=== PATIENT | female | born 1955 | race Caucasian/White ===

== ENCOUNTER 2017-09-15 13:11 | Emergency (ER) | payer OTHER ==
[~2017-09-15] VITALS: Ht 154.9 cm; Wt 111.8 kg
[~2017-09-15 13:11] MED LIST: BEN50 PO; PANT40EC PO
[2017-09-15 13:18] VITALS: BP 130/78
--- NOTE | 2017-09-15 13:29 | NUR ---
PATIENT PRESENTS TO ED WITH LT FLANK PAIN RADIATING TO LOWER ABD .DENIES N/V/D; SKIN IS PINK/WARM/DRY; AAOX4 WITH EVEN AND STEADY GAIT; LUNGS CLEAR BL; HR EVEN AND REGULAR; PT DENIES ANY FEVER, CP, SOB, OR COUGH AT THIS TIME; PATIENT STATES PAIN OF 2/10 AT THIS TIME; VSS; PATIENT POSITIONED FOR COMFORT; HOB ELEVATED; BEDRAILS UP X2; BED DOWN. ER MD MADE AWARE OF PT STATUS.
[2017-09-15] MEDS ORDERED: KETOROLAC 60 MG/2 ML VIAL IM ONE (13:45)
[2017-09-15 14:04] VITALS: BP 125/72
--- NOTE | 2017-09-15 14:04 | NUR ---
Patient discharged with v/s stable. Written and verbal after care instructions given and explained. Patient alert, oriented and verbalized understanding of instructions. Ambulatory with steady gait. All questions addressed prior to discharge. ID band removed. Patient advised to follow up with PMD. Rx of MOTRIN AND ZOFRAN given. Patient educated on indication of medication including possible reaction and side effects. Opportunity to ask questions provided and answered.
== END 2017-09-15 14:04 | disposition home or self-care (01) ==
LOC: MED 13:11
DX: R10.13 Epigastric pain (principal); K21.9 Gastro-esophageal reflux disease without esophagitis; F17.200 Nicotine dependence, unspecified, uncomplicated; Z88.5 Allergy status to narcotic agent
CPT/HCPCS: 81002; 96372; 99283; J1885

== ENCOUNTER 2018-04-14 14:15 | Emergency (ER) | payer OTHER ==
[~2018-04-14] VITALS: Ht 157.5 cm; Wt 127.0 kg
[2018-04-14 14:19] VITALS: BP 111/71
--- NOTE | 2018-04-14 14:20 | NUR ---
63y/f bib self c/o spider bite to left arm, tha lower extremities x 3 days. +pruritis, Denies fevers/vomitting; bed down; bedrail up x 1; er md aware and notified of pt status. med hx: none rx: pantrapozole
--- NOTE | 2018-04-14 14:40 | NUR ---
Patient being evaluated by physician at bedside.
[2018-04-14 15:21] VITALS: BP 110/70
--- NOTE | 2018-04-14 15:21 | NUR ---
Patient discharged with v/s stable. Written and verbal after care instructions given and explained. Patient alert, oriented and verbalized understanding of instructions. Ambulatory with steady gait. All questions addressed prior to discharge. ID band removed. Patient advised to follow up with PMD. Rx of hydrocortisone, bactrium, benadryl given. Patient educated on indication of medication including possible reaction and side effects. Opportunity to ask questions provided and answered.
== END 2018-04-14 15:21 | disposition home or self-care (01) ==
LOC: MED 14:15
DX: S50.362A Insect bite (nonvenomous) of left elbow, initial encounter (principal); S90.562A Insect bite (nonvenomous), left ankle, initial encounter; S90.561A Insect bite (nonvenomous), right ankle, initial encounter; L73.9 Follicular disorder, unspecified; K21.9 Gastro-esophageal reflux disease without esophagitis; Z88.5 Allergy status to narcotic agent; Z79.899 Other long term (current) drug therapy; W57.XXXA Bitten or stung by nonvenomous insect and other nonvenomous arthropods, initial encounter; Y93.89 Activity, other specified; Y92.89 Other specified places as the place of occurrence of the external cause; Y99.8 Other external cause status
CPT/HCPCS: 99283

== ENCOUNTER 2018-04-15 13:03 | Emergency (ER) | payer OTHER ==
[~2018-04-15] VITALS: Ht 157.5 cm; Wt 112.5 kg
[2018-04-15 13:12] VITALS: BP 118/66
--- NOTE | 2018-04-15 13:17 | NUR ---
Patient ambulated to bed 5. RN evaluating patient at bedside.
--- NOTE | 2018-04-15 13:18 | NUR ---
63/F BIB SON FOR RECHECK FROM INSECT BITE ON LT UPPER ARM WITH C/O FEELING HOT AND "LITTLE BIT OF PAIN" 3/10 WITH ITCHINESS; SEEN HERE YESTERDAY AND PRESCRIBE WITH HYDROCORTISONE. HX; GERD. RX; PANTOPRAZOLE.AAOX4 WITH EVEN AND STEADY GAIT; LUNGS CLEAR BL; HR EVEN AND REGULAR; PAIN 3/10 AT THIS TIME; PATIENT POSITIONED FOR COMFORT; HOB ELEVATED; BEDRAILS UP X2; BED DOWN. ER MD MADE AWARE OF PT STATUS.
--- NOTE | 2018-04-15 13:22 | NUR ---
Dr. Mireles evaluating patient at bedside.
[2018-04-15] MEDS ORDERED: diphenhydrAMINE 50 MG/ML VIAL IM ONE (13:25)
[2018-04-15] MEDS ORDERED: DEXAMETHASONE 10 MG/ML VIAL IM ONE (13:25)
--- NOTE | 2018-04-15 13:40 | NUR ---
Dr. Mireles re-evaluating patient at bedside.
[2018-04-15 14:40] VITALS: BP 119/71
--- NOTE | 2018-04-15 14:40 | NUR ---
Patient discharged with v/s stable. Written and verbal after care instructions given and explained. Patient alert, oriented and verbalized understanding of instructions. Ambulatory with steady gait. All questions addressed prior to discharge. ID band removed. Patient advised to follow up with PMD. Rx of PREDNISONE & ATARAX given. Patient educated on indication of medication including possible reaction and side effects. Opportunity to ask questions provided and answered.
== END 2018-04-15 14:40 | disposition home or self-care (01) ==
LOC: MED 13:03
DX: T63.441A Toxic effect of venom of bees, accidental (unintentional), initial encounter (principal); K21.9 Gastro-esophageal reflux disease without esophagitis; L08.9 Local infection of the skin and subcutaneous tissue, unspecified; Z88.6 Allergy status to analgesic agent; Z88.8 Allergy status to other drugs, medicaments and biological substances; Z79.899 Other long term (current) drug therapy
CPT/HCPCS: 96372; 99284; J1100; J1200

== ENCOUNTER 2018-10-07 15:29 | Emergency (ER) | payer OTHER ==
[~2018-10-07] VITALS: Ht 157.5 cm; Wt 114.4 kg
[2018-10-07 16:51] VITALS: BP 150/91
--- NOTE | 2018-10-07 18:21 | NUR ---
63 YO F WITH C/O R BREAST PAIN SINCE SUNDAY. 01/20 PAIN. NO DISCHRAGE OR INJURY. RADIATING TO R ARM. MAMMOGRAM DONE AUG 2018, DENSITY FOUND ON L BREAST PER PT. VSS; PATIENT POSITIONED FOR COMFORT; HOB ELEVATED; BEDRAILS UP X1; BED DOWN. ER MD MADE AWARE OF PT STATUS.
[2018-10-07 18:22] VITALS: BP 150/91
--- NOTE | 2018-10-07 19:10 | NUR ---
ASSUMED CARE OF PT FROM [facility]I OSMAN
--- NOTE | 2018-10-07 21:07 | NUR ---
PATIENT LEFT WITHOUT BEING SEEN BY ER PROVIDER. NO FURTHER CARE PROVIDED FOR PATIENT.
== END 2018-10-07 21:07 | disposition left against medical advice (07) ==
LOC: MED 15:29
DX: N64.4 Mastodynia (principal); K21.9 Gastro-esophageal reflux disease without esophagitis; Z53.21 Procedure and treatment not carried out due to patient leaving prior to being seen by health care provider
CPT/HCPCS: 96372; 99283

== ENCOUNTER 2018-12-23 14:17 | Emergency (ER) | payer OTHER ==
[~2018-12-23] VITALS: Ht 154.9 cm; Wt 115.7 kg
[2018-12-23 14:30] VITALS: BP 133/74
--- NOTE | 2018-12-23 14:38 | NUR ---
PT AMBULATED TO BED 10.
--- NOTE | 2018-12-23 14:51 | NUR ---
C/O RIGHT FLANK PAIN RADIATING RIGHT GROIN AREA X 3 DAYS-- ADDS TODAY FELT PAIN ON BILATERAL FLANK AREAS---DENIES DYSURIA ADMITS HAS BEEN DRINKING SODA
--- NOTE | 2018-12-23 15:15 | NUR ---
Patient taken to CT scan via gurney by [facility].
--- NOTE | 2018-12-23 15:18 | NUR ---
pt to ct via [facility]
--- NOTE | 2018-12-23 15:24 | NUR ---
Patient returned from CT scan. RN re-evaluating patient at bedside.
[2018-12-23 15:54] LABS: BASOPHILS # (AUTO) 0.1 K/uL (0.00-0.22); BASOPHILS % (AUTO) 1.1 % (0.0-2.0); EOSINOPHILS # (AUTO) 0.3 K/uL (0-0.4); EOSINOPHILS % (AUTO) 2.7 % (0.0-4.0); HEMATOCRIT 40.7 % (36-48); HEMOGLOBIN 13.4 g/dL (12.0-16.0); LYMPHOCYTES # (AUTO) 2.9 K/uL (2.5-16.5); LYMPHOCYTES % (AUTO) 29.7 % (20.5-51.1); MEAN CORPUSCULAR HEMOGLOBIN 29 pg (27-31); MEAN CORPUSCULAR HGB CONC 33 g/dL (33-37); MEAN CORPUSCULAR VOLUME 88.5 fL (80-94); MONOCYTES # (AUTO) 0.9 K/uL (0.8-1.0); MONOCYTES % (AUTO) 9.4 % (1.7-9.3); NEUTROPHILS # (AUTO) 5.6 K/uL (1.8-7.7); NEUTROPHILS % (AUTO) 57.1 % (42.2-75.2); PLATELET COUNT (AUTO) 266 K/uL (140-450); RED CELL DISTRIBUTION WIDTH 14.5 % (11.6-13.7); WHITE BLOOD COUNT (AUTO) 9.7 K/uL (4.8-10.8)
[2018-12-23 15:54] LABS: APPEARANCE,URINE HAZY (CLEAR); BILIRUBIN,URINE NEGATIVE (NEGATIVE); BLOOD, URINE TRACE-L (NEGATIVE); COLOR,URINE YELLOW (YELLOW); LEUKOCYTE ESTERASE ,URINE TRACE (NEGATIVE); NITRITE, URINE NEGATIVE (NEGATIVE); PH,URINE 6.5 (5.0-9.0); UGLUCOSE NEGATIVE (NEGATIVE)
[2018-12-23 16:06] LABS: RBC,URINE 0-5 /HPF (0-5); WBC,URINE 0-5 /HPF (0-5)
[2018-12-23 16:14] LABS: ALBUMIN 3.3 g/dL (3.4-5.0); ANION GAP 11.2 (8-16); CARBON DIOXIDE 26.6 mmol/L (21-32); POTASSIUM 3.8 mmol/L (3.5-5.1); TOTAL BILIRUBIN 0.3 mg/dL (0.0-1.0)
[2018-12-23] MEDS ORDERED: KETOROLAC 60 MG/2 ML VIAL IM ONE (16:35)
[2018-12-23 16:52] VITALS: BP 137/88
--- NOTE | 2018-12-23 16:53 | NUR ---
Patient discharged with v/s stable. Written and verbal after care instructions given and explained. Patient alert, oriented and verbalized understanding of instructions. Ambulatory with steady gait. All questions addressed prior to discharge. ID band removed. Patient advised to follow up with PMD. Rx of NAPROSYN given. Patient educated on indication of medication including possible reaction and side effects. Opportunity to ask questions provided and answered. RADIOLOGY READ HANDED TO PT ALONG WITH LAB RESULTS TO F/U WITH PMD
== END 2018-12-23 16:50 | disposition home or self-care (01) ==
LOC: MED 14:17
DX: K57.90 Diverticulosis of intestine, part unspecified, without perforation or abscess without bleeding (principal); M47.896 Other spondylosis, lumbar region; K21.9 Gastro-esophageal reflux disease without esophagitis; Z88.5 Allergy status to narcotic agent; Z79.899 Other long term (current) drug therapy
CPT/HCPCS: 36415; 74176; 80053; 81001; 81025; 83690; 85025; 87086; 96372; 99284; J1885

== ENCOUNTER 2019-08-12 23:44 | Emergency (ER) | payer OTHER ==
[~2019-08-12] VITALS: Ht 157.5 cm; Wt 117.0 kg
[2019-08-12 23:50] VITALS: BP 147/87
--- NOTE | 2019-08-12 23:50 | NUR ---
TO BED # 09 AMBULATORY
--- NOTE | 2019-08-13 00:16 | NUR ---
BIB SELF C/O DIFFICULTY SWALLOWING/BREATHING X 2 DAYS S/P TAKING PREDNISONE + MONTELUKAST THAT WAS PRESCRIBED FOR SINUSITIS VIA PCP. PT REPORTS DIFFICULTY BREATHING WHEN LAYING FLAT. NO CHEST PAIN REPORTED. BILATERAL LUNG SOUNDS CLEAR. PERIODIC ACCESSORY MUSCLE USE. PMH: SEASONAL ALLERGIES, GERD ALLERGIES: CODEINE, MORPHINE
--- NOTE | 2019-08-13 00:21 | NUR ---
PATIENT TRANSFERRED TO XRAY VIA WHEEL CHAIR
--- NOTE | 2019-08-13 00:55 | NUR ---
PT RESTING ON CHAIR. REPORTS IMPROVEMENT OF DIFFICULTY SWALLING/BREATHING.
[2019-08-13] MEDS ORDERED: FUROSEMIDE 20 MG TAB PO ONE (01:10)
[2019-08-13 01:15] VITALS: BP 138/79
--- NOTE | 2019-08-13 01:15 | NUR ---
Patient discharged with v/s stable. No c/o of sob/dyspena. She states relief. Written and verbal after care instructions given and explained. Patient alert, oriented and verbalized understanding of instructions. Ambulatory with steady gait. All questions addressed prior to discharge. ID band removed. Patient advised to follow up with PMD and when to return to ER. Rx of Lasix and Benadryl given. Patient educated on indication of medication including possible reaction and side effects. Opportunity to ask questions provided and answered.
== END 2019-08-13 01:15 | disposition home or self-care (01) ==
LOC: MED 23:44
DX: T78.40XA Allergy, unspecified, initial encounter (principal); K21.9 Gastro-esophageal reflux disease without esophagitis; Z88.5 Allergy status to narcotic agent; Z98.41 Cataract extraction status, right eye; X58.XXXA Exposure to other specified factors, initial encounter; Y93.89 Activity, other specified; Y92.89 Other specified places as the place of occurrence of the external cause; Y99.8 Other external cause status
CPT/HCPCS: 71046; 99283; Q0163

== ENCOUNTER 2020-10-24 15:07 | Emergency (ER) | payer OTHER ==
[~2020-10-24] VITALS: Ht 170.2 cm; Wt 104.3 kg
[2020-10-24 15:10] VITALS: BP 138/78
--- NOTE | 2020-10-24 15:16 | NUR ---
65 YO F BIB SELF FOR C/O NON RAD CHEST PRESSURE SINCE LAST NIGHT AFTER TAKING GABAPENTIN FOR THE FIRST TIME, PT STATES SHE FEELS LIKE SHE HAD AN ANXIETY ATTACK LAST NIGHT, BUT CHEST PRESSURE IS STILL PRESENT. PT REPORTS NAUSEA NO VOMITING. S1S2 HEARD, LUNG SOUNDS CLEAR THROUGHOUT. CAP REFILL <3, PULSES EQUAL AND REGULAR. PT DID NOT TAKE ANY OTC MEDS FOR PAIN. PT PLACED ON POLICE CADET/PULSE OX. BED LOCKED AND IN LOWEST POSITION. SIDE RAILS X1. NO PMH ALLERGIES: CODEINE, MORPHINE
--- NOTE | 2020-10-24 15:54 | NUR ---
RAD AT BEDSIDE
--- NOTE | 2020-10-24 15:58 | NUR ---
EKG ORDER AT 1536 PER DOCTOR REQUESTED TO POSTPONE FOR 1 HOUR.
--- NOTE | 2020-10-24 15:59 | NUR ---
LAB AT BEDSIDE
[2020-10-24 16:09] LABS: BASOPHILS # (AUTO) 0.1 K/uL (0.00-0.22); BASOPHILS % (AUTO) 0.9 % (0.0-2.0); EOSINOPHILS # (AUTO) 0.4 K/uL (0-0.4); EOSINOPHILS % (AUTO) 4.4 % (0.0-4.0); HEMATOCRIT 41.5 % (36-48); LYMPHOCYTES # (AUTO) 3.1 K/uL (2.5-16.5); LYMPHOCYTES % (AUTO) 30.8 % (20.5-51.1); MEAN CORPUSCULAR HEMOGLOBIN 30 pg (27-31); MEAN CORPUSCULAR HGB CONC 34 g/dL (33-37); MONOCYTES # (AUTO) 0.9 K/uL (0.8-1.0); MONOCYTES % (AUTO) 8.6 % (1.7-9.3); NEUTROPHILS # (AUTO) 5.6 K/uL (1.8-7.7); NEUTROPHILS % (AUTO) 55.3 % (42.2-75.2); PLATELET COUNT (AUTO) 281 K/uL (140-450); RED BLOOD CELL COUNT(AUTO) 4.66 MIL/uL (4.20-5.40); RED CELL DISTRIBUTION WIDTH 15.1 % (11.6-13.7); WHITE BLOOD COUNT (AUTO) 10.1 K/uL (4.8-10.8)
[2020-10-24 16:27] LABS: ALBUMIN 3.6 g/dL (3.4-5.0); ANION GAP 12.7 (8-16); CARBON DIOXIDE 27.9 mmol/L (21-32); POTASSIUM 4.6 mmol/L (3.5-5.1); TOTAL BILIRUBIN 0.5 mg/dL (0.0-1.0)
--- NOTE | 2020-10-24 17:41 | NUR ---
LAB AT BEDSIDE FOR REPEAT TROPONIN
[2020-10-24 18:54] VITALS: BP 105/44
--- NOTE | 2020-10-24 18:54 | NUR ---
Patient discharged with v/s stable. Written and verbal after care instructions given and explained. Patient verbalized understanding. Ambulatory with steady gait. All questions addressed prior to discharge. Advised to follow up with PMD.
== END 2020-10-24 18:54 | disposition home or self-care (01) ==
LOC: MED 15:07
DX: R07.9 Chest pain, unspecified (principal); M54.5 Low back pain; K21.9 Gastro-esophageal reflux disease without esophagitis; Z88.5 Allergy status to narcotic agent
CPT/HCPCS: 36415; 71045; 80053; 83880; 84484; 85025; 93005; 99285

== ENCOUNTER 2021-11-04 09:31 | Emergency (ER) | payer OTHER ==
[~2021-11-04] VITALS: Ht 157.5 cm; Wt 115.2 kg
--- NOTE | 2021-11-04 09:51 | NUR ---
PT AMBULATED TO ER BED 2 WITH A STEADY GAIT FOR BEDSIDE TRIAGE.
[2021-11-04 09:53] VITALS: BP 138/105
--- NOTE | 2021-11-04 09:57 | NUR ---
DR. YANG AT PT BEDSIDE FOR FURTHER EVALUATION.
[2021-11-04] MEDS ORDERED: KETOROLAC 30 MG/ML VIAL IM ONE (10:10)
--- NOTE | 2021-11-04 10:11 | NUR ---
66 Y/O FEMALE C/O LEFT WRIST PAIN 05/22 X1DAY S/P "TURNING THE SHOWER KNOB" AT HOME. TODAY STATES SHE WOKE UP WITH SWELLING, EDEMA +2 NON-PITTING. DENIES FEVER/CHILLS. DENIES N/V. DENIES PMH ALLERGIES: CODEINE, MORPHINE, VICODIN
[2021-11-04] MEDS ORDERED: NAPR-54 PO (11:00)
--- NOTE | 2021-11-04 11:04 | NUR ---
PT'S LEFT WRIST SPLINTED WITH FABRICATED SPLINT. NOTIFED AND APPROVED.
[2021-11-04 11:21] VITALS: BP 138/105
--- NOTE | 2021-11-04 11:21 | NUR ---
Patient discharged with v/s stable. Written and verbal after care instructions given FOR TENDINITIS AND WRIST SPRAIN and explained. Patient alert, oriented and verbalized understanding of instructions. Ambulatory with steady gait. All questions addressed prior to discharge. ID band removed. Patient advised to follow up with PMD. Rx of NAPROXEN given. Patient educated on indication of medication including possible reaction and side effects. Opportunity to ask questions provided and answered.
== END 2021-11-04 11:21 | disposition home or self-care (01) ==
LOC: MED 09:31
DX: S63.502A Unspecified sprain of left wrist, initial encounter (principal); K21.9 Gastro-esophageal reflux disease without esophagitis; Z88.5 Allergy status to narcotic agent; Z79.899 Other long term (current) drug therapy; Z98.890 Other specified postprocedural states; X50.1XXA Overexertion from prolonged static or awkward postures, initial encounter; Y93.89 Activity, other specified; Y92.89 Other specified places as the place of occurrence of the external cause; Y99.8 Other external cause status
CPT/HCPCS: 29125; 73110; 96372; 99283; J1885; Q0092

== ENCOUNTER 2021-12-18 15:14 | Emergency (ER) | payer MEDICARE, OTHER ==
[~2021-12-18] VITALS: Ht 157.5 cm; Wt 116.1 kg
[~2021-12-18 15:14] MED LIST changes: +NAPR-54 PO
[2021-12-18 15:27] VITALS: BP 137/65
[2021-12-18] MEDS ORDERED: GABAPENTIN 300 MG CAP PO ONE ×2 (16:35→16:55)
[2021-12-18] MEDS ORDERED: KETOROLAC 15 MG/ML VIAL IM ONE (16:35)
[2021-12-18] MEDS ORDERED: METH-1681 PO (16:58)
[2021-12-18] MEDS ORDERED: GABA100C PO (16:58)
--- NOTE | 2021-12-18 16:58 | NUR ---
PT STATED DECREASE IN PAIN FROM 10/10 TO 4/10
--- NOTE | 2021-12-18 17:07 | NUR ---
Patient discharged with v/s stable. Written and verbal after care instructions ABOUT SCIATICA given and explained. Patient alert, oriented and verbalized understanding of instructions. Ambulatory with steady gait WITH WALKER. All questions addressed prior to discharge. ID band removed. Patient advised to follow up with PMD. Rx of GABAPENTIN, ROBAXIN given. Patient educated on indication of medication including possible reaction and side effects. Opportunity to ask questions provided and answered.
== END 2021-12-18 17:07 | disposition home or self-care (01) ==
LOC: MED 15:14
DX: M54.40 Lumbago with sciatica, unspecified side (principal); K21.9 Gastro-esophageal reflux disease without esophagitis; Z88.5 Allergy status to narcotic agent
CPT/HCPCS: 96372; 99283; J1885

== ENCOUNTER 2023-03-24 11:09 | Emergency (ER) | payer OTHER ==
[~2023-03-24] VITALS: Ht 162.6 cm; Wt 115.7 kg
[~2023-03-24 11:09] MED LIST changes: +GABA100C PO; +METH-1681 PO
[2023-03-24 11:20] VITALS: PULSE 84; RESP 16; TEMP 98.8; O2SAT 96
[2023-03-24 11:48] VITALS: O2SAT 96
[2023-03-24] MEDS ORDERED: FAMOTIDINE 20 MG TAB PO ONE (11:50)
[2023-03-24] MEDS ORDERED: KETOROLAC 30 MG/ML VIAL IM ONE (11:50)
[2023-03-24] MEDS ORDERED: DIPHENHYDRAMINE HCL/ZINC ACET 28 GM TUBE TP PRN (12:25)
[2023-03-24] MEDS ORDERED: NAPR-54 PO (13:35)
[2023-03-24] MEDS ORDERED: DICL20GE TP (13:39)
[2023-03-24] MEDS ORDERED: FAMO-90 PO (13:39)
== END 2023-03-24 13:44 | disposition home or self-care (01) ==
LOC: MED 11:09
DX: S40.012A Contusion of left shoulder, initial encounter (principal); S50.861A Insect bite (nonvenomous) of right forearm, initial encounter; K21.9 Gastro-esophageal reflux disease without esophagitis; Z88.5 Allergy status to narcotic agent; Z79.899 Other long term (current) drug therapy; W22.8XXA Striking against or struck by other objects, initial encounter; Y93.89 Activity, other specified; Y92.512 Supermarket, store or market as the place of occurrence of the external cause; Y99.8 Other external cause status
CPT/HCPCS: 73030; 96372; 99283; J1885

== ENCOUNTER 2023-11-20 10:14 | Emergency (ER) | payer OTHER ==
[~2023-11-20] VITALS: Ht 154.9 cm; Wt 115.7 kg
[~2023-11-20 10:14] MED LIST changes: +DICL20GE TP; +FAMO-90 PO
[2023-11-20 10:22] VITALS: BP 132/73; PULSE 95; RESP 16; TEMP 98.4; O2SAT 97
[2023-11-20] MEDS: KETOROLAC 30 MG/ML VIAL IM ONE (11:05)
[2023-11-20] MEDS: LIDOCAINE 5% 1 EA PATCH TP ONE (11:06)
[2023-11-20] MEDS ORDERED: CYCL-711 PO (11:11)
[2023-11-20] MEDS ORDERED: IBUP-2213 PO (11:11)
[2023-11-20] MEDS ORDERED: LID5T TP (11:11)
[2023-11-20 11:24] VITALS: BP 132/73; PULSE 95; RESP 16; TEMP 98.4; O2SAT 97
== END 2023-11-20 11:26 | disposition home or self-care (01) ==
LOC: MED 10:14
DX: M75.31 Calcific tendinitis of right shoulder (principal); R03.0 Elevated blood-pressure reading, without diagnosis of hypertension; K21.9 Gastro-esophageal reflux disease without esophagitis; Z79.1 Long term (current) use of non-steroidal anti-inflammatories (NSAID); Z79.899 Other long term (current) drug therapy; Z88.5 Allergy status to narcotic agent
CPT/HCPCS: 73030; 93005; 96372; 99283; J1885